=== PATIENT | male | born 1990 | race Caucasian/White ===

== ENCOUNTER 2020-05-23 17:49 | Emergency (ER) | payer OTHER ==
[~2020-05-23] VITALS: Ht 188 cm; Wt 96.6 kg
[2020-05-23 18:36] LABS: URINE BILIRUBIN NEGATIVE (Negative); URINE BLOOD NEGATIVE (Negative); URINE CLARITY CLEAR; URINE COLOR YELLOW; URINE GLUCOSE-RANDOM NEGATIVE (Negative); URINE KETONES TRACE (Negative); URINE LEUKOCYTES-REFLEX NEGATIVE (Negative); URINE NITRITE-REFLEX NEGATIVE (Negative); URINE PROTEIN NEGATIVE (Negative); URINE SPECIFIC GRAVITY >= 1.030 (1.005-1.030); URINE UROBILINOGEN 0.2 E.U./dl (0.2-1.0)
[2020-05-23 19:45] VITALS: BP 128/72
== END 2020-05-23 19:46 | disposition home or self-care (01) ==
LOC: M.ERS 17:49
PROVIDERS: Physician Assistant
DX: N50.812 Left testicular pain (principal)